=== PATIENT | female | born 1960 | race Hispanic/Latino ===

== ENCOUNTER → 2025-10-06 | Outpatient (CLI) | payer MEDICARE ==
--- NOTE | 2025-10-08 15:36 | HMCIMG ---
EXAM: MR Cervical Spine Without Intravenous Contrast. CLINICAL HISTORY: M47.812 Spondylosis without myelopathy or radiculopathy, cervical region (Hx) TECHNIQUE: Magnetic resonance images of the cervical spine in multiple planes. CONTRAST: None. COMPARISON: None. FINDINGS: The imaged posterior fossa is unremarkable. The craniocervical junction is intact. No acute fracture. Loss of cervical lordosis is probably secondary to muscular spasm. Normal vertebral body height and marrow signal intensity. Multilevel disc desiccation and minimal disc bulges at C4-C5 and C5-C6 levels. No abnormal signal involves the cervical cord. No extra-axial masses. The surrounding soft tissues are unremarkable. Level by level, disease is present as follows: C1-C2: No osteoarthritis. C2-C3: Mild disc desiccation with minimal 2.5 mm posterior central disc protrusion. No neural foraminal, lateral recess, or spinal canal stenosis. C3-C4: Disc desiccation with 3 mm posterior central disc protrusion and left C4 uncinate process hypertrophy. No neural foraminal, lateral recess, or spinal canal stenosis. C4-C5: Mild disc desiccation with degenerative reduction in disc space with degenerative anterior osteophyte. 3 mm posterior central disc protrusion with annular tear. Bilateral C5 uncinate process hypertrophy. Mild narrowing of the right neural foramina abutment of the right exiting C5 nerve root. C5-C6: Disc desiccation with degenerative reduction in disc space and anterior osteophyte. Broad-based circumferential 3 mm disc bulge and bilateral C6 uncinate process hypertrophy. Moderate narrowing of the bilateral neural foramina is left more than right. Abutment of bilateral exiting C6 nerve root. No spinal canal stenosis. C6-C7: No disc bulge or herniation. No neural foraminal, lateral recess, or spinal canal stenosis. C7-T1: No disc bulge or herniation. No neural foraminal, lateral recess, or spinal canal stenosis. IMPRESSION: No evidence of acute fracture or subluxation. Normal vertebral body height and marrow signal intensity. Multilevel disc desiccation and minimal disc bulges at C4-C5 and C5-C6 levels. Mild degenerative changes in the cervical spine at the C4-C5 and C5-C6 levels. /[place]
== END | disposition home or self-care (01) ==
LOC: RAH 13:22
PROVIDERS: ATTEND Internal Medicine
DX: M47.812 Spondylosis without myelopathy or radiculopathy, cervical region (principal); M50.322 Other cervical disc degeneration at C5-C6 level; M48.02 Spinal stenosis, cervical region; M50.221 Other cervical disc displacement at C4-C5 level; M50.21 Other cervical disc displacement, high cervical region
CPT/HCPCS: 72141